=== PATIENT | female | born 1985 | race African-American/Black ===

== ENCOUNTER 2016-09-20 06:38 | Inpatient (IN) | payer OTHER, MEDICAID ==
[~2016-09-20] VITALS: Ht 167.6 cm; Wt 77.7 kg
[2016-09-20] VITALS (19 sets, daily range): BP systolic 95–118; BP diastolic 53–77; PULSE 73–110; TEMP 97.4–98.2
[~2016-09-20 06:38] MED LIST: CEPHALEXIN500 M1 PO; DOXYCYCLINE 10100 MG PO; LORTAB 5/500 501 TAB PO; NO HOME MEDICATIONS; NORCO 325 MG-51 TAB PO; PERCOCET 325 MG1 TA2 PO; ULTRAM 50MG TAB50 MG PO; ZOFRAN 4MG T4 MG/TAB PO
[2016-09-20] MEDS ORDERED: PRENATAL1 TA7 PO (07:00)
[2016-09-20 07:39] LABS: BASO % 0.3 % (0.0-2.0); EOS % 0.4 % (0-4.0); GRAN # 8.3 (1.4-6.5); GRAN % 82.6 % (42.2-75.2); LYMPH # 1.1 (1.2-3.4); LYMPH % 10.9 % (20.0-51.0); MEAN CELL VOLUME 84 fl (80.0-100.0); MEAN CORPUSCULAR HGB CONC 33 g/dl (33.0-37.0); MEAN PLATELET VOLUME 9.3 fl (7.4-10.4); MONO # 0.5 (0.1-0.6); MONO % 5.4 % (1.7-9.3); PLATELET COUNT 208 K/mm3 (130-400); RED BLOOD COUNT 4.11 M/mm3 (4.10-5.30); REDCELL DISTRIBUTION WIDTH-CV 13.4 % (11.5-14.5); WHITE BLOOD COUNT 10.1 K/mm3 (4.8-10.8)
[2016-09-20 07:40] LABS: HEMATOCRIT 34.6 % (37.0-47.0); HEMOGLOBIN 11.5 g/dl (12.5-16.0); MEAN CORPUSCULAR HEMOGLOBIN 28 pg (27.0-31.0)
[2016-09-21 02:55] VITALS: BP 112/68; PULSE 65; TEMP 98.1
[2016-09-21 07:45] VITALS: BP 105/66; PULSE 69; TEMP 98.2
[2016-09-21] MEDS ORDERED: PERCOCET 325 MG1 TA2 PO (08:47)
[2016-09-21] MEDS ORDERED: IBU600 MG PO (08:47)
[2016-09-21 12:15] VITALS: BP 119/59; PULSE 70; TEMP 98.4
[2016-09-21 17:00] VITALS: BP 110/60; PULSE 69; TEMP 98.1
[2016-09-21 20:40] VITALS: BP 103/55; PULSE 71; TEMP 98.2
[2016-09-22 09:00] VITALS: BP 121/77; PULSE 85; TEMP 98.3
== END 2016-09-22 10:30 | disposition home or self-care (01) | DRG 775 ==
LOC: LDRO 06:38 → LDR 06:50 → OB 15:05 → LDRO 09-27 15:25
PROVIDERS: Obstetrics & Gynecology
PROC: 10E0XZZ Delivery of Products of Conception, External Approach (ICD-10-PCS; principal; 2016-09-20)
DX: O99.824 Streptococcus B carrier state complicating childbirth (principal); Z3A.37 37 weeks gestation of pregnancy; Z37.0 Single live birth
CPT/HCPCS: J2540; J2590; J7120

== ENCOUNTER → 2017-10-17 | Outpatient (CLI) | payer OTHER ==
[~2017-10-17] MED LIST changes: +IBU600 MG PO; +PRENATAL1 TA7 PO
== END ==
LOC: COL.RAD 12:21
DX: M17.12 Unilateral primary osteoarthritis, left knee (principal); M94.8X6 Other specified disorders of cartilage, lower leg

== ENCOUNTER 2017-12-08 23:18 | Emergency (ER) | payer OTHER ==
[~2017-12-08] VITALS: Ht 165.1 cm; Wt 68.2 kg
[2017-12-08 23:26] VITALS: BP 120/75; TEMP 98.5
[2017-12-09 00:52] LABS: COLLECTION METHOD CLEAN CATCH
[2017-12-09 00:58] LABS: PH 6 (5-8); SQUAMOUS EPITHELIAL 0-2 /hpf; URINE APPEARANCE Clear; URINE BACTERIA None Seen /hpf; URINE BILIRUBIN Negative (NEGATIVE); URINE BLOOD 1+ (NEGATIVE); URINE COLOR Straw; URINE GLUCOSE Negative (NEGATIVE); URINE KETONE Negative (NEGATIVE); URINE LEUKOCYTE ESTERASE Negative (NEGATIVE); URINE NITRATE Negative (NEGATIVE); URINE PROTEIN(semi-quant) Negative (NEGATIVE); URINE RBC 0-2 /hpf; URINE UROBILINOGEN Negative (NEGATIVE)
[2017-12-09 01:28] VITALS: PULSE 90
== END 2017-12-09 01:28 | disposition home or self-care (01) ==
LOC: COL.ER 23:18
PROVIDERS: Nurse Practitioner
DX: M54.5 Low back pain (principal); F17.210 Nicotine dependence, cigarettes, uncomplicated; Z87.39 Personal history of other diseases of the musculoskeletal system and connective tissue
CPT/HCPCS: J1885; J2360

== ENCOUNTER 2019-06-17 08:55 | Emergency (ER) | payer OTHER ==
[~2019-06-17] VITALS: Ht 165.1 cm; Wt 63.6 kg
[2019-06-17 09:09] VITALS: BP 116/73; TEMP 99.1
[2019-06-17 10:02] LABS: STREP SCREEN NEGATIVE
[2019-06-17] MEDS ORDERED: AMOXICILLIN 8751 TAB PO (10:09)
[2019-06-17 10:20] VITALS: PULSE 87
== END 2019-06-17 10:20 | disposition home or self-care (01) ==
LOC: COL.ER 08:55
PROVIDERS: Nurse Practitioner Primary Care
DX: J03.90 Acute tonsillitis, unspecified (principal); J32.9 Chronic sinusitis, unspecified; K21.9 Gastro-esophageal reflux disease without esophagitis; G43.909 Migraine, unspecified, not intractable, without status migrainosus; F17.210 Nicotine dependence, cigarettes, uncomplicated

== ENCOUNTER 2020-05-18 10:09 | Emergency (ER) | payer SELFPAY ==
[~2020-05-18] VITALS: Ht 165.1 cm; Wt 68.2 kg
[~2020-05-18 10:09] MED LIST changes: +AMOXICILLIN 8751 TAB PO
[2020-05-18 11:23] LABS: BASO # 0.1 (0.0-0.2); BASO % 0.8 % (0.0-2.0); EOS # 0.3 (0.0-0.7); EOS % 4.4 % (0-4.0); GRAN # 5.2 (1.4-6.5); GRAN % 68.6 % (42.2-75.2); HEMOGLOBIN 11.8 g/dl (12.5-16.0); LYMPH # 1.4 (1.2-3.4); LYMPH % 18.4 % (20.0-51.0); MEAN CELL VOLUME 88 fl (80.0-100.0); MEAN CORPUSCULAR HEMOGLOBIN 29 pg (27.0-31.0); MEAN CORPUSCULAR HGB CONC 33 g/dl (33.0-37.0); MEAN PLATELET VOLUME 9.6 fl (7.4-10.4); MONO # 0.6 (0.1-0.6); MONO % 7.7 % (1.7-9.3); PLATELET COUNT 225 K/mm3 (130-400); RED BLOOD COUNT 4.08 M/mm3 (4.10-5.30); REDCELL DISTRIBUTION WIDTH-CV 13.9 % (11.5-14.5)
[2020-05-18 11:34] LABS: ALBUMIN 4.1 gm/dL (3.5-5.0); BILIRUBIN,TOTAL 0.3 mg/dL (0.0-1.0); CREATININE, serum 0.72 (0.52-1.25); POTASSIUM 3.8 mmol/L (3.4-5.0); TOTAL PROTEIN 6.7 gm/dL (6.4-8.2)
[2020-05-18] MEDS ORDERED: ZITHROMAX Z PA250 MG PO (12:09)
[2020-05-18] MEDS ORDERED: TESSALON PERLE200 MG PO (12:09)
[2020-05-18 12:17] VITALS: BP 126/82; PULSE 87; TEMP 98.1
== END 2020-05-18 12:19 | disposition home or self-care (01) ==
LOC: COL.ER 10:09
PROVIDERS: Family Medicine
DX: J20.9 Acute bronchitis, unspecified (principal); Z20.828 Contact with and (suspected) exposure to other viral communicable diseases
CPT/HCPCS: J2405; J7120

== ENCOUNTER 2020-11-01 21:13 | Emergency (ER) | payer SELFPAY ==
[~2020-11-01] VITALS: Ht 165.1 cm; Wt 75.0 kg
[~2020-11-01 21:13] MED LIST changes: +TESSALON PERLE200 MG PO; +ZITHROMAX Z PA250 MG PO
[2020-11-01 21:49] VITALS: BP 124/74; PULSE 80; TEMP 98.2
[2020-11-01] MEDS ORDERED: ROBAXIN 75750 MG/TAB PO (21:52)
== END 2020-11-01 22:01 | disposition home or self-care (01) ==
LOC: COL.ER 21:13
DX: M79.601 Pain in right arm (principal); Z88.6 Allergy status to analgesic agent; Y04.8XXA Assault by other bodily force, initial encounter; Y92.69 Other specified industrial and construction area as the place of occurrence of the external cause; Y99.0 Civilian activity done for income or pay

== ENCOUNTER 2021-01-14 09:35 | Emergency (ER) | payer SELFPAY ==
[~2021-01-14] VITALS: Ht 165.1 cm; Wt 72.7 kg
[~2021-01-14 09:35] MED LIST changes: +ROBAXIN 75750 MG/TAB PO
[2021-01-14 09:57] VITALS: TEMP 98
[2021-01-14] MEDS ORDERED: NORCO 325 MG-51 TAB PO (10:53)
[2021-01-14 11:07] VITALS: BP 123/70; PULSE 72
== END 2021-01-14 11:18 | disposition home or self-care (01) ==
LOC: COL.ER 09:35
DX: S86.912A Strain of unspecified muscle(s) and tendon(s) at lower leg level, left leg, initial encounter (principal); W10.8XXA Fall (on) (from) other stairs and steps, initial encounter
CPT/HCPCS: L1846